=== PATIENT | female | born 1955 | race Caucasian/White ===

== ENCOUNTER → 2024-02-25 10:55 | Outpatient (REF) | payer MEDICARE, OTHER, SELFPAY | LOC: RCS 10:55 | PROVIDERS: ATTENDING PHYSICIAN Internal Medicine Cardiovascular Disease; FAMILY PHYSICIAN Family Medicine | DX: R00.2 Palpitations (principal) | CPT/HCPCS: 93225; 93226 ==

== ENCOUNTER → 2024-06-10 15:49 | Outpatient (REF) | payer MEDICARE, OTHER, SELFPAY | LOC: WDC 15:49 | PROVIDERS: ATTENDING PHYSICIAN Family Medicine; OTHER PHYSICIAN Internal Medicine Critical Care Medicine | DX: Z12.31 Encounter for screening mammogram for malignant neoplasm of breast (principal); J84.89 Other specified interstitial pulmonary diseases | CPT/HCPCS: 71250; 77063; 77067 ==

== ENCOUNTER → 2025-01-14 12:09 | Outpatient (REF) | payer MEDICARE, OTHER, SELFPAY ==
[2025-01-14 14:09] LABS: ALT (SGPT) 32 U/L (0-35); AST (SGOT) 28 U/L (14-36); Albumin 4.6 g/dl (3.5-5.0); Alkaline Phosphatase 77 U/L (38-126); Blood Urea Nitrogen 16 mg/dl (7-17); Calcium 9.8 mg/dl (8.4-10.2); Carbon Dioxide 25 mmol/L (22-30); Chloride 102 mmol/L (98-107); Glucose 91 mg/dl (70-99); HDL Cholesterol 59 mg/dl; Potassium 4.7 mmol/L (3.5-5.1); Sodium 139 mmol/L (135-145); Total Bilirubin 0.8 mg/dl (0.2-1.3); Total Protein 7.6 g/dl (6.3-8.2); Triglyceride 71 mg/dl (10-149); Very Low Density Lipoprotein 14 mg/dl (0-30); eGFR > 60.00
[2025-01-14 14:15] LABS: LDL Cholesterol, Calculated 103 mg/dl; Total Cholesterol 176 mg/dl (50-199)
[2025-01-14 14:18] LABS: Vitamin D, 25-OH*** 19.5 ng/mL (30-80)
== END ==
LOC: REG 12:09
PROVIDERS: ATTENDING PHYSICIAN Family Medicine
DX: E78.00 Pure hypercholesterolemia, unspecified (principal); E55.9 Vitamin D deficiency, unspecified
CPT/HCPCS: 36415; 80053; 80061; 82306

== ENCOUNTER 2025-03-01 13:21 | Emergency (ER) | payer MEDICARE, OTHER, SELFPAY ==
[2025-03-01 13:25] VITALS: BP 149/114
--- NOTE | 2025-03-01 15:04 | ED.GENMED ---
History of Present Illness
General
Chief Complaint: Musculo-Skeletal Complaint
Source: patient
Time Seen by Provider: 03/01/25 14:53
History of Present Illness
History of Present Illness:
69-year-old female with no significant past medical history for evaluation after she excellently tripped getting out of the car and landing on her right hand with noted deformity to the right ring finger as well as injuring her left middle finger.
Patient sustained no other injuries. She is not on any anticoagulants. No other concerns.
Past History
Past History
ED Past Medical History: Other (Kidney stones)
ED Past Surgical History: (2 C-sections)
Social History
Tobacco: Non-smoker
Alcohol: Occasional
Drug: None
Personal:
Living: with family
Employment: Employed
Review of Systems
Review of Systems
All Other Systems: ROS reviewed and negative except as documented in HPI and ROS
Phy Exam
Physical Exam
Physical Exam:
GENERAL: Alert , in no apparent distress
EYE: conjunctiva clear
Head: Normocephalic atraumatic
NECK: Supple,
ENT: mmm.
LUNGS: no acute respiratory distress
NEUROLOGICAL: Alert and oriented
SKIN: Warm and dry, skin intact.
MUSCULOSKELETAL: Right hand: Deformity noted at the PIP joint to the right ring finger. Sensation grossly intact to light touch. Cap refill less than 2 seconds.
PSYCH: Normal and appropriate interaction.
Scores
Heart Failure Risk
Heart Failure Risk Score: Not Applicable
Heart Score for Chest Pain Patients
STEMI patient?: Not applicable
Withdrawal Assessment of Alcohol
Withdrawal Assessment Completed?: Not applicable
Course
Orders/Labs/Results
Orders:
Orders
03/01/25 13:28
CR Finger(s)/thumb Min 2 Vw Rt Urgent
Comment:
Reason For Exam: ring finger injury
Indicate Which Finger:: Ring Finger
03/01/25 15:00
CR Finger(s)/thumb Min 2 Vw Rt Urgent
Comment:
Reason For Exam: reduction film
Vital Signs
Initial and Last Documented VS:
Initial Vital Signs
Temp Pulse Resp BP Pulse Ox
98.4 F 100 18 149/114 96
03/01/25 13:25 03/01/25 13:25 03/01/25 13:25 03/01/25 13:25 03/01/25 13:25
Last Documented Vital Signs
Temp Pulse Resp BP Pulse Ox
98.4 F 100 18 149/114 96
03/01/25 13:25 03/01/25 13:25 03/01/25 13:25 03/01/25 13:25 03/01/25 13:25
Procedures
Joint/Fracture Reduction
Right Fourth Finger:
Indication for procedure:: Dislocation
Procedure completed by: Alcides
Joint reduced: without anesthesia
Injury was: closed
Further treatement: no treatment needed
Post reduction exam: stable
Capillary Refill: normal
Normal distal neurovascular exam?: Yes
Ring removal
Ring removed with: lubricant and ring cutters
Is finger swollen distally?: Yes
Distal sensation: intact to touch
Distal capillary refill: brisk
MDM/Problems Addressed
Differential Diagnosis Includes:
dislocation, fracture, sprain
MDM/Problems Addressed:
69-year-old female presenting to the ER after injuring her right hand in an accidental fall resulting in suspected right ring finger PIP joint dislocation. X-ray was ordered on arrival which confirms dislocation without evidence for fracture.
Joint reduced as above without any difficulty. Patient tolerated procedure well. Reduction film being obtained. Anticipate discharge home with orthopedics follow-up.
*Critical Care Note
Total Time (30-74mins, 75-104mins- exclusive of procedures): Not Applicable
ED Attending Note
-
Portions of this chart may have been created with voice recognition software.� Occasional wrong word or��sound alike� substitutions may have occurred due to the inherent limitations of voice recognition software.
Discharge Plan
Departure
Patient Disposition: Home (Routine Discharge)
Date of Disposition: 03/01/25
Time of Disposition: 16:10
Patient with high blood pressure during this ER visit?: Yes
Discharge Problem:
Closed traumatic dislocation of proximal interphalangeal (PIP) joint of right ring finger
Instructions: Finger dislocation - Discharge instructions
Prescriptions:
No Action
hydrocodone-acetaminophen 1 TABLET tablet
1 tab PO Q4HPRN PRN (Reason: pain) Qty: 12 0RF
levofloxacin 500 MG tablet
500 mg PO DAILY Qty: 6 0RF
Referrals:
Robin Iyer DO [Family Provider] -
Swapnil Edge MD [Active] - (Ortho)
Interventions
Interventions:
*Risk Screen - Suicide Last Done: 03/01/25 13:27
*General Assessment Last Done: 03/01/25 13:27
*Neglect/Abuse Screening Last Done: 03/01/25 13:27
*Nursing Disposition Last Done: 03/01/25 16:41
ED-Musculoskeletal Assessment Last Done: 03/01/25 16:40
Discharge Date and Time
Discharge Date/Time: 03/01/25 16:42
Print Language: ETHIOPIAN
== END 2025-03-01 16:42 | disposition home or self-care (01) ==
LOC: EMR 13:21
PROVIDERS: EMERGENCY PHYSICIAN Emergency Medicine; FAMILY PHYSICIAN Family Medicine
DX: S63.284A Dislocation of proximal interphalangeal joint of right ring finger, initial encounter (principal); V48.4XXA Person boarding or alighting a car injured in noncollision transport accident, initial encounter
CPT/HCPCS: 26770; 99283; 73140

== ENCOUNTER 2025-03-16 14:46 | Emergency (ER) | payer MEDICARE, OTHER, SELFPAY ==
[2025-03-16 14:48] VITALS: BP 147/100
--- NOTE | 2025-03-16 17:12 | ED.GENMED ---
History of Present Illness
General
Chief Complaint: DVT/Possible Blood Clot
Source: patient
Exam Limitations: none
Time Seen by Provider: 03/16/25 17:01
Nursing documentation reviewed up to this point in time: agreed with
History of Present Illness
History of Present Illness:
69-year-old female with no significant past medical history presents for left calf pain. She states this started yesterday. She had a 4-hour drive from [place] 2 days ago. She denies chest pain or trouble breathing.
Past History
Past History
ED Past Medical History: Psychiatric (Anxiety on Limbitrol) and Other (Kidney stones)
ED Past Surgical History: (2 C-sections)
Social History
Tobacco: Non-smoker
Alcohol: Occasional
Drug: None
Personal:
Living: with family
Employment: Employed
Review of Systems
Review of Systems
Allergies reviewed?: Yes
All Other Systems: ROS reviewed and negative except as documented in HPI and ROS
Constitutional: Denies fever
Respiratory: Denies trouble breathing
Cardiac: Denies chest pain
Musculoskeletal: Reports other (Pain left calf)
Skin: Reports other (Tender area of redness medial aspect left calf)
Neurological: Reports no symptoms
Phy Exam
Physical Exam
Physical Exam:
GENERAL: No acute distress. A&Ox3.
CONSTITUTIONAL: Afebrile.
CARDIOVASCULAR: Regular rate and rhythm, no murmurs, no rubs.
MUSCULOSKELETAL: Left calf with no significant swelling warmth or redness. There is about a 3 cm x 2 cm area of erythema at the medial aspect of the mid left calf that is tender. Most likely superficial phlebitis. Moves with ease. Well perfused.
SKIN: Warm, dry, pink
PSYCH: Normal mood and affect. Well kept, interactive and appropriate
NEUROLOGIC: Awake, alert and oriented. No focal neurological deficits
Course
Orders/Labs/Results
Orders:
Orders
03/16/25 14:51
US Periph Venous LOWER Ext LT Urgent
Comment:
Reason For Exam: pain in calf
Vital Signs
Initial and Last Documented VS:
Initial Vital Signs
Temp Pulse Resp BP Pulse Ox
97.6 F 99 16 147/100 98
03/16/25 14:48 03/16/25 14:48 03/16/25 14:48 03/16/25 14:48 03/16/25 14:48
Last Documented Vital Signs
Temp Pulse Resp BP Pulse Ox
97.6 F 99 16 147/100 98
03/16/25 14:48 03/16/25 14:48 03/16/25 14:48 03/16/25 14:48 03/16/25 17:06
MDM/Problems Addressed
Differential Diagnosis Includes:
DVT, superficial phlebitis, muscle strain
MDM/Problems Addressed:
69-year-old female with no significant past medical history presents for left calf pain. She states this started yesterday. She had a 4-hour drive from [place] 2 days ago. She denies chest pain or trouble breathing.
Ultrasound negative for DVT
There is a reddened area of the medial aspect of the left calf that is tender, no significant swelling, this may be a superficial phlebitis
*Critical Care Note
Total Time (30-74mins, 75-104mins- exclusive of procedures): Not Applicable
ED Attending Note
-
Portions of this chart may have been created with voice recognition software.� Occasional wrong word or��sound alike� substitutions may have occurred due to the inherent limitations of voice recognition software.
Discharge Plan
Departure
Patient Disposition: Home (Routine Discharge)
Date of Disposition: 03/16/25
Time of Disposition: 17:10
Patient with high blood pressure during this ER visit?: No
Condition: Good
Discharge Problem:
Pain of left calf
Instructions: Superficial vein phlebitis and thrombosis
Prescriptions:
No Action
hydrocodone-acetaminophen 1 TABLET tablet
1 tab PO Q4HPRN PRN (Reason: pain) Qty: 12 0RF
levofloxacin 500 MG tablet
500 mg PO DAILY Qty: 6 0RF
Referrals:
Robin Iyer, DO [Family Provider] - As needed
Activity Restrictions/Additional Instructions:
As we discussed, your ultrasound shows no deep vein clots. You may have an inflammation of the superficial vein at that site where it is red and tender. Warm compresses, ibuprofen as needed for pain and time should take care of it.
Interventions
Interventions:
*Risk Screen - Suicide Last Done: 03/16/25 14:48
*General Assessment Last Done: 03/16/25 14:48
*Neglect/Abuse Screening Last Done: 03/16/25 17:06
*ED COVID-19 Vaccine History Last Done: 03/16/25 14:48
*Nursing Disposition Last Done: 03/16/25 17:47
ED- Cardiac Assessment Last Done: 03/16/25 17:06
ED- Pulmonary Assessment Last Done: 03/16/25 17:06
ED-Peripheral Vascular Assessment Last Done: 03/16/25 17:06
ED-Skin Assessment Last Done: 03/16/25 17:06
Discharge Date and Time
Discharge Date/Time: 03/16/25 17:47
Print Language: IRAQI
== END 2025-03-16 17:47 | disposition home or self-care (01) ==
LOC: EMR 14:46
PROVIDERS: EMERGENCY PHYSICIAN Student in an Organized Health Care Education/Training Program; FAMILY PHYSICIAN Family Medicine
DX: M79.662 Pain in left lower leg (principal); Z87.442 Personal history of urinary calculi
CPT/HCPCS: 99284; 93971

== ENCOUNTER → 2025-03-23 10:47 | Outpatient (REF) | payer MEDICARE, OTHER, SELFPAY | LOC: RAD 10:47 | PROVIDERS: ATTENDING PHYSICIAN Physician Assistant Medical; FAMILY PHYSICIAN Family Medicine | DX: M79.89 Other specified soft tissue disorders (principal); M79.605 Pain in left leg | CPT/HCPCS: 93971 ==

== ENCOUNTER → 2025-11-02 10:43 | Outpatient (REF) | payer MEDICARE, OTHER, SELFPAY ==
[2025-11-02 12:06] LABS: Hematocrit 40.9 % (37.0-47.0); Hemoglobin 13.6 g/dL (12.0-16.0); Mean Corp Hgb Conc. 33.3 g/dL (33.0-37.0); Mean Corpuscular Volume 89.7 fL (81.0-99.0); Nucleated Red Blood Cells % 0 %; Platelet Count 299 10^3/uL (130-400); Red Cell Dist. Width 13.4 % (11.5-14.5)
[2025-11-02 12:40] LABS: ALT (SGPT) 21 U/L (0-35); AST (SGOT) 25 U/L (14-36); Albumin 4.6 g/dl (3.5-5.0); Alkaline Phosphatase 80 U/L (38-126); Blood Urea Nitrogen 15 mg/dl (7-17); Calcium 9.6 mg/dl (8.4-10.2); Carbon Dioxide 27 mmol/L (22-30); Chloride 103 mmol/L (98-107); Glucose 89 mg/dl (70-99); HDL Cholesterol 67 mg/dl; LDL Cholesterol, Calculated 135 mg/dl; Potassium 4.4 mmol/L (3.5-5.1); Sodium 137 mmol/L (135-145); Total Protein 8.2 g/dl (6.3-8.2); Very Low Density Lipoprotein 22 mg/dl (0-30); eGFR > 60.00
[2025-11-02 13:07] LABS: TSH 3.55 uIU/ml (0.47-4.68)
[2025-11-02 16:36] LABS: Urine Character Clear (Clear)
[2025-11-02 17:15] LABS: Urine Red Blood Cell 0-2 /HPF (0-2)
== END ==
LOC: REG 10:43
PROVIDERS: ATTENDING PHYSICIAN Family Medicine
DX: Z00.00 Encounter for general adult medical examination without abnormal findings (principal); F41.1 Generalized anxiety disorder; F13.20 Sedative, hypnotic or anxiolytic dependence, uncomplicated; M85.859 Other specified disorders of bone density and structure, unspecified thigh; Z13.31 Encounter for screening for depression; Z71.89 Other specified counseling; Z13.39 Encounter for screening examination for other mental health and behavioral disorders; K21.9 Gastro-esophageal reflux disease without esophagitis; J47.9 Bronchiectasis, uncomplicated; G47.33 Obstructive sleep apnea (adult) (pediatric); E55.9 Vitamin D deficiency, unspecified; E66.9 Obesity, unspecified
CPT/HCPCS: 36415; 80053; 80061; 81003; 81015; 82652; 84443; 85025